=== PATIENT | female | born 1970 | race Caucasian/White ===

== ENCOUNTER → 2021-08-08 14:46 | Outpatient (CLI) | payer OTHER, SELFPAY ==
--- NOTE | 2021-08-08 14:46 | MR_ITS ---
FINAL REPORT CLINICAL HISTORY: Cranial nerve palsy, nystagmus, right leg weakness. WEAKNESS IN RIGHT SIDE OF BODY [id number]. HEADACHE ON RIGHT SIDE OF HEAD. FINDINGS: Multiplanar MR imaging of the brain was performed without contrast. There is motion on many of the images which significantly decreases the sensitivity of the exam. There are several less than 1 cm foci of increased T2 signal abnormality in the cerebral white matter which are nonspecific, may represent chronic small vessel ischemic disease, demyelination, or changes of vasculitis. The largest focus in the right posterior frontal lobe measures 5 mm. There is no evidence of intracranial hemorrhage or mass. The ventricular size is normal. There is no evidence of shift of the midline structures. No abnormal extra-axial fluid collection is identified. The posterior fossa and brainstem have an unremarkable appearance. No area of abnormal restricted diffusion is identified. Normal major vessel vascular flow voids are seen. IMPRESSION: Nonspecific cerebral white matter changes may represent chronic small vessel ischemic disease, demyelination, or changes of vasculitis. Reviewed, Interpreted and Dictated by Kalin Francisco III, MD Transcribed by Kylah Nathan Authenticated and [facility]
== END ==
PROVIDERS: PCP Student in an Organized Health Care Education/Training Program; Visit Provider Specialist
DX: R26.9 Unspecified abnormalities of gait and mobility (principal); R29.898 Other symptoms and signs involving the musculoskeletal system
CPT/HCPCS: 70551